=== PATIENT | female | born 1980 | race Caucasian/White ===

== ENCOUNTER 2016-05-27 21:11 | Emergency (ER) | payer OTHER ==
--- NOTE | 2016-05-27 21:54 | ED CLINICAL REPORT ---
Clinical Report - Physicians/Mid Levels [facility] [address] [place] [address] 05/27/2016 21:11 Patient: MIGUEL BOYER Time Seen: 21:20. Arrived- By private vehicle. Historian- patient. HISTORY OF PRESENT ILLNESS The patient sustained a burn to the right upper extremity - right forearm and right wrist. Chief Complaint: BURN. The injury occurred just prior to arrival. The injury was due to hot liquid (she was making clam chowder this evening a burned her self after stirring too vigorously with the ladle). It occurred at home. The patient complains of mild pain. REVIEW OF SYSTEMS No chills, fever, sweats, calf pain or chest pain. No cough, difficulty breathing, pedal edema, palpitations or abdominal pain. No constipation, diarrhea, nausea, vomiting or urinary problems. All systems otherwise negative, except as recorded above. SOCIAL HISTORY Never smoker. No alcohol use or drug use. FAMILY HISTORY No significant family medical history. ADDITIONAL NOTES The nursing notes have been reviewed. PHYSICAL EXAM Vital Signs: 05/27/2016 21:28 BP: 147/96. HR: 80. RR: 16. O2 saturation: 100%. Temp: 98.3 F. Pain level now: 4/10. Have been reviewed. Appearance: Alert. No acute distress. Head: Head atraumatic. Eyes: Pupils equal, round and reactive to light. ENT: Pharynx normal. Neck: Trachea midline. Painless ROM. CVS: Heart sounds normal. Respiratory: Breath sounds normal. Abdomen: No visible injury. Back: ROM normal. Skin: Right forearm: 1st degree burn distal aspect. Right wrist: 1st degree and 2nd degree burn. No circumferential burn present or vesicles present. Neuro: No motor deficit. No sensory deficit. PROGRESS AND PROCEDURES Patient/family counseled. Old medical records reviewed. Disposition: Discharged. Condition: stable. CLINICAL IMPRESSION Single first degree thermal burn to the right forearm and to the right wrist. INSTRUCTIONS Warnings: GENERAL WARNINGS: Return or contact your physician immediately if your condition worsens or changes unexpectedly, if not improving as expected, or if other problems arise. Understanding of the discharge instructions verbalized by patient. (Electronically signed by Rashaad Machuca MD 05/27/2016 21:58)
--- NOTE | 2016-05-27 21:54 | ED NURSING NOTES ---
Clinical Report - Nurses [facility] [place] [address] 05/27/2016 21:11 Patient: MIGUEL BOYER TRIAGE Triage time 2125 PM. Chief Complaint: BURN. 21:28 05/27/16. --21:28 Gus Luis R.N. Alert. No acute distress. [place] COMA SCORE: [place] Coma Scale: 15- eyes open spontaneously (4); best verbal response- oriented x 4 (5); best motor response- obeys commands (6). --21:29 Gus Luis R.N. 21:05/27/16. BP: 147/96. HR: 80. RR: 16. O2 saturation: 100%. Temp: 98.3 F (oral). Pain level now: 08/04. --21:29 Gus Luis R.N. Weight: 104.3 kg stated. Height/Length: 66 inches Per Patient. BMI: 37.1. --21:29 Gus Luis R.N. Medications None. --21:27 Gus Luis R.N. Allergies Codeine. Valium. Vicodin. --21:27 Gus Luis R.N. History Arrived by private vehicle. Historian: patient. Accompanied by family. Location of injuries: right forearm and right wrist. This occurred (1930pm). ( Patients states that she was making clam chowder this evening a burned her self after stirring too vigorously with the ladle,). Treatment MATERIALS MGMT TECH: Took ibuprofen. (800mg). Trauma activation: Pre-hospital notification of patient arrival was not received. PAST MEDICAL HX: Tetanus status: up-to-date. Immunizations: up-to-date. SOCIAL HX: Never smoker. No alcohol use or drug use. FALL RISK ASSESSMENT: Fall risk assessment completed. No fall risk identified. NUTRITIONAL RISK ASSESSMENT: The nutritional risk assessment revealed no deficiencies. FUNCTIONAL ASSESSMENT: Functional assessment: no impairments noted. LEARNING NEEDS ASSESSMENT: The learning needs assessment revealed no barriers. SKIN INTEGRITY ASSESSMENT: Skin integrity risk assessment completed. No skin integrity risk identified. --21:28 Gus Luis R.N. Interventions ID band on patient. --21:29 Gus Luis R.N. PHYSICAL ASSESSMENT GENERAL / NEURO / PSYCH: Alert. Oriented X 4. Appears in no acute distress. HEENT: Pupils equal, round and reactive to light. Pupils equal, round and reactive to light. Mouth within normal limits upon inspection. Voice within normal limits. Mucous membranes are pink. RESPIRATORY: Respirations not labored. Breath sounds within normal limits. CVS: Normal heart rate and rhythm. Capillary refill less than 2 seconds. GI / : Abdomen soft and nontender. EXTREMITIES: Skin intact on the extremities. SKIN: Skin is warm and dry. Blisters are not present. Contamination is not present. --21:30 Gus Luis R.N. NURSING PROGRESS NOTES Call light placed in reach. Side rails up x 1. Bed placed in lowest position. Brakes of bed on. --22:00 Gus Luis R.N. DISPOSITION / DISCHARGE Condition at departure: improved. The goals identified in the patient's plan of care were met. No learning barriers present. Discharge instructions provided and reviewed with the patient. Patient verbalized understanding. Written instructions provided in [place]. The patient was discharged home and accompanied by family. She left the Emergency Department ambulatory and via private vehicle. Family member driving. FALL RISK ASSESSMENT: Fall risk assessment completed. No fall risk identified. --22:00 Gus Luis R.N. Departure time: 2200 PM. --22:00 Gus Luis R.N. Locked/Released at 05/27/2016 22:01 by Gus Luis R.N.
--- NOTE | 2016-05-27 21:54 | ED CLINICAL REPORT ---
Clinical Report - Physicians/Mid Levels [facility] [address] [place] [address] 05/27/2016 21:11 Patient: MIGUEL BOYER Time Seen: 21:20. Arrived- By private vehicle. Historian- patient. HISTORY OF PRESENT ILLNESS The patient sustained a burn to the right upper extremity - right forearm and right wrist. Chief Complaint: BURN. The injury occurred just prior to arrival. The injury was due to hot liquid (she was making clam chowder this evening a burned her self after stirring too vigorously with the ladle). It occurred at home. The patient complains of mild pain. REVIEW OF SYSTEMS No chills, fever, sweats, calf pain or chest pain. No cough, difficulty breathing, pedal edema, palpitations or abdominal pain. No constipation, diarrhea, nausea, vomiting or urinary problems. All systems otherwise negative, except as recorded above. SOCIAL HISTORY Never smoker. No alcohol use or drug use. FAMILY HISTORY No significant family medical history. ADDITIONAL NOTES The nursing notes have been reviewed. PHYSICAL EXAM Vital Signs: 05/27/2016 21:28 BP: 147/96. HR: 80. RR: 16. O2 saturation: 100%. Temp: 98.3 F. Pain level now: 4/10. Have been reviewed. Appearance: Alert. No acute distress. Head: Head atraumatic. Eyes: Pupils equal, round and reactive to light. ENT: Pharynx normal. Neck: Trachea midline. Painless ROM. CVS: Heart sounds normal. Respiratory: Breath sounds normal. Abdomen: No visible injury. Back: ROM normal. Skin: Right forearm: 1st degree burn distal aspect. Right wrist: 1st degree and 2nd degree burn. No circumferential burn present or vesicles present. Neuro: No motor deficit. No sensory deficit. PROGRESS AND PROCEDURES Patient/family counseled. Old medical records reviewed. Disposition: Discharged. Condition: stable. CLINICAL IMPRESSION Single first degree thermal burn to the right forearm and to the right wrist. INSTRUCTIONS Warnings: GENERAL WARNINGS: Return or contact your physician immediately if your condition worsens or changes unexpectedly, if not improving as expected, or if other problems arise. Understanding of the discharge instructions verbalized by patient. (Electronically signed by Rashaad Machuca MD 05/27/2016 21:58)
--- NOTE | 2016-05-27 21:54 | ED NURSING NOTES ---
Clinical Report - Nurses [facility] [place] [address] 05/27/2016 21:11 Patient: MIGUEL BOYER TRIAGE Triage time 2125 PM. Chief Complaint: BURN. 21:28 05/27/16. --21:28 Gus Luis R.N. Alert. No acute distress. HUSEYIN COMA SCORE: [place] Coma Scale: 15- eyes open spontaneously (4); best verbal response- oriented x 4 (5); best motor response- obeys commands (6). --21:29 Gus Luis R.N. 21:05/27/16. BP: 147/96. HR: 80. RR: 16. O2 saturation: 100%. Temp: 98.3 F (oral). Pain level now: 08/04. --21:29 Gus Luis R.N. Weight: 104.3 kg stated. Height/Length: 66 inches Per Patient. BMI: 37.1. --21:29 Gus Luis R.N. Medications None. --21:27 Gus Luis R.N. Allergies Codeine. Valium. Vicodin. --21:27 Gus Luis R.N. History Arrived by private vehicle. Historian: patient. Accompanied by family. Location of injuries: right forearm and right wrist. This occurred (1930pm). ( Patients states that she was making clam chowder this evening a burned her self after stirring too vigorously with the ladle,). 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 (800mg). Trauma activation: Pre-hospital notification of patient arrival was not received. PAST MEDICAL HX: Tetanus status: up-to-date. Immunizations: up-to-date. SOCIAL HX: Never smoker. No alcohol use or drug use. FALL RISK ASSESSMENT: Fall risk assessment completed. No fall risk identified. NUTRITIONAL RISK ASSESSMENT: The nutritional risk assessment revealed no deficiencies. FUNCTIONAL ASSESSMENT: Functional assessment: no impairments noted. LEARNING NEEDS ASSESSMENT: The learning needs assessment revealed no barriers. SKIN INTEGRITY ASSESSMENT: Skin integrity risk assessment completed. No skin integrity risk identified. --21:28 Gus Luis R.N. Interventions ID band on patient. --21:29 Gus Luis R.N. PHYSICAL ASSESSMENT GENERAL / NEURO / PSYCH: Alert. Oriented X 4. Appears in no acute distress. HEENT: Pupils equal, round and reactive to light. Pupils equal, round and reactive to light. Mouth within normal limits upon inspection. Voice within normal limits. Mucous membranes are pink. RESPIRATORY: Respirations not labored. Breath sounds within normal limits. CVS: Normal heart rate and rhythm. Capillary refill less than 2 seconds. GI / : Abdomen soft and nontender. EXTREMITIES: Skin intact on the extremities. SKIN: Skin is warm and dry. Blisters are not present. Contamination is not present. --21:30 Gus Luis R.N. NURSING PROGRESS NOTES Call light placed in reach. Side rails up x 1. Bed placed in lowest position. Brakes of bed on. --22:00 Gus Luis R.N. DISPOSITION / DISCHARGE Condition at departure: improved. The goals identified in the patient's plan of care were met. No learning barriers present. Discharge instructions provided and reviewed with the patient. Patient verbalized understanding. Written instructions provided in [place]. The patient was discharged home and accompanied by family. She left the Emergency Department ambulatory and via private vehicle. Family member driving. FALL RISK ASSESSMENT: Fall risk assessment completed. No fall risk identified. --22:00 Gus Luis R.N. Departure time: 2200 PM. --22:00 Gus Luis R.N. Locked/Released at 05/27/2016 22:01 by Gus Luis R.N.
--- NOTE | 2016-05-27 22:01 | ED MAR SUMMARY ---
..... Medication Administration Record [facility] [address] [place], [place] [id number] Patient: MIGUEL BOYER Visit ID: [id number] 35y, F Weight: 104.3 kg Height/Length: 66 in BMI: 37.1 ALLERGIES: Codeine, Valium, Vicodin
--- NOTE | 2016-05-27 22:01 | ED DISCHARGE INSTRUCTIONS ---
Patient: MIGUEL BOYER General Instructions [facility] VisitID: [id number] [place] [address] 35y, F Registration Date/Time: 05/27/2016 Single first degree thermal burn to the right forearm and to the right wrist. INSTRUCTIONS Warnings: GENERAL WARNINGS: Return or contact your physician immediately if your condition worsens or changes unexpectedly, if not improving as expected, or if other problems arise. Understanding of the discharge instructions verbalized by patient. ADDITIONAL INFORMATION Burn, Hot Water A hot water burn to the skin causes a first or second-degree burn. Afirst-degree burn causes redness only and heals in a few days. A second-degree burn is deeper and causes a blister to form. The blister may break and leak clear fluid. Second-degree montiel take one to two weeks to heal. Home care The following guidelines will help you care for your burn at home: On the first day, apply a cool compress (small towel soaked in cool water) to relieve severe pain. If no blister formed you may use creams with benzocaine if painful. If ablister formed and broke and a bandage was applied, change it once a day, or as directed. If the bandage sticks, remove it by soaking it in warm water. Wash the burned area daily with soap and water, and pat dry with a clean towel. For the next 3 to 5 days, apply an antibiotic cream or ointment after washing. This will help to prevent an infection and to keep the bandage from sticking. If ablister formed and broke it will go down by itself or it will break on its own in the next few days. If the blister breaks, a clear fluid will leak from it for a day or two. The loose skin from the broken blister has no feeling. This skin may be carefully trimmed away with a clean, small, sharp scissors (to sterilize: soak in alcohol first or wash with soap and water). Wash the raw surface under the blister daily with soap and water. For the next 3 to 5 days, apply an antibiotic cream or ointment after washing. This will help to prevent an infection and to keep the bandage from sticking. You may use acetaminophen or ibuprofen to control pain, unless another pain medicine was prescribed. If you have chronic liver or kidney disease or ever had a stomach ulcer or GI bleeding, talk with your doctor before using these medicines. Do not give ibuprofen to children under6 months of age. Follow-up care Most hot water montiel heal without infection. Occasionally an infection occurs despite proper treatment. Therefore, watch for the signs of infection listed below. When to seek medical attention Get prompt medical attention if any of the following occur: Increasing pain Increasing redness, swelling Pus coming from the wound Fever of 100.4 F (38 C) or higher, or as directed by your health care provider You have been given the following additional information: Burn, Hot Water (Electronically signed by Rashaad Machuca MD 05/27/2016 21:58)
--- NOTE | 2016-05-27 22:01 | ED MED RECONCILIATION SUMMARY ---
Patient: MIGUEL BOYER Medication Reconciliation Report [facility] VisitID: [id number] [address] [place] [address] 35y, F Registration Date/Time: 05/27/2016 Weight: 104.3 kg Height/Length: 66 in. BMI: 37.1 ALLERGIES: Codeine, Valium, Vicodin The patient's Home Medications are listed below: NONE. The source(s) of the original Home Medication information: Not obtained. The following Medications were given to the patient in the Emergency Department: None. The following Medications were prescribed to the patient: None.
--- NOTE | 2016-05-27 22:01 | ED MED RECONCILIATION SUMMARY ---
Patient: MIGUEL BOYER Medication Reconciliation Report [facility] VisitID: [id number] [address] [place] [address] 35y, F Registration Date/Time: 05/27/2016 Weight: 104.3 kg Height/Length: 66 in. BMI: 37.1 ALLERGIES: Codeine, Valium, Vicodin The patient's Home Medications are listed below: NONE. The source(s) of the original Home Medication information: Not obtained. The following Medications were given to the patient in the Emergency Department: None. The following Medications were prescribed to the patient: None.
--- NOTE | 2016-05-27 22:01 | ED MAR SUMMARY ---
..... Medication Administration Record [facility] [address] [place], [place] [id number] Patient: MIGUEL BOYER Visit ID: [id number] 35y, F Weight: 104.3 kg Height/Length: 66 in BMI: 37.1 ALLERGIES: Codeine, Valium, Vicodin
== END 2016-05-27 21:58 | disposition home or self-care (01) ==
LOC: ED SRH 21:11
DX: T22.111A Burn of first degree of right forearm, initial encounter (principal); T23.171A Burn of first degree of right wrist, initial encounter; X10.1XXA Contact with hot food, initial encounter; Y93.G3 Activity, cooking and baking; Y92.009 Unspecified place in unspecified non-institutional (private) residence as the place of occurrence of the external cause; Y99.9 Unspecified external cause status